=== PATIENT | male | born 1960 | race Caucasian/White ===

== ENCOUNTER 2017-10-17 07:03 | Day surgery (SDC) | payer OTHER ==
[2017-10-17] MEDS ORDERED: Lactated Ringer's 1,000 ML IV ONE (07:32)
[2017-10-17] MEDS ORDERED: Propofol 10 mg/ml Inj (20 ML) ONE (08:34)
[2017-10-17] MEDS ORDERED: Lidocaine 2% MPF (5 ml) Inj ONE (08:34)
[2017-10-17] MEDS ORDERED: Midazolam 2 MG/2 ML VIAL ONE (08:34)
[2017-10-17 09:08] VITALS: TEMP 97
[2017-10-17 09:22] VITALS: BP 106/62; PULSE 57; RESP 12; O2SAT 100
== END 2017-10-17 09:33 | disposition home or self-care (01) ==
LOC: H.ENDO 07:03
PROVIDERS: ATTEND Internal Medicine Gastroenterology
DX: Z12.11 Encounter for screening for malignant neoplasm of colon (principal); K64.8 Other hemorrhoids
CPT/HCPCS: 45378; J2250; J2704; J7120